=== PATIENT | male | born 1945 | race Caucasian/White ===

== ENCOUNTER 2023-04-20 12:05 | Outpatient (CLI) | payer MEDICARE, SELFPAY ==
--- NOTE | ~2023-04-20 | PE_ITS ---
EXAMINATION: PET_PETPSMAST_PT DATE: 04/20/2023 14:47 INDICATION: Prostate cancer TECHNIQUE: 9.208 mCi of pipflufolastat F-18 (18-F-DCFPyL) was administered i.v. Low dose computed to mography (CT) images were acquired from the base of the brain to the base of the brain to the proxima l thighs for attenuation correction and anatomic localization. Positron emission tomography (PET) moustapha ges were acquired in the same distribution beginning 79 minutes after injection. Images including fus ed PET/CT images were reconstructed in axial, coronal, and sagittal planes. Automated exposure contro l technique was employed. The dose-length product was 481.20mGy-cm. COMPARISON: None FINDINGS: Head/neck: Typical pattern of symmetric physiologic increased activity in the lacrimal, parotid and submandibula r glands as well as along the mucosa of the nasal and oral cavities, the kate-, naso- and hypopharynx, the glottis and esophagus. No pathologically enlarged cervical lymphadenopathy or suspicious foci of increased uptake in the visualized head or neck. Chest: No suspicious pulmonary nodules, pneumonia, pulmonary edema or other pulmonary infiltrates. No pleura l effusion. Heart size is normal. No pericardial effusion. No pathologically enlarged or PSMA avid th oracic lymphadenopathy. Abdomen/pelvis/proximal thighs: Physiologic renal accumulation and excretion of activity in the kidneys, bladder and along portions o f ureters. Bilateral renal cysts, the largest exophytic cyst on the left measuring 2 cm. Excreted uri nary activity in the bladder extends caudally into the site of the resected prostate. No surrounding nodular soft tissue densities or suspicious PSMA avid lesions in the region of the resected prostate to suggest residual or recurrent disease. Normal degree and slightly heterogenous pattern of increase d uptake throughout the liver and spleen without radiologic correlate or dominant PSMA avid lesion. T he gallbladder, pancreas and bilateral adrenal glands are normal. Moderate uptake scattered throughou t the bowels with typical duodenal and proximal jejunal predominance and without radiologic correlate , also likely physiologic. Mild uptake with maximal SUV of 2.3 associated with a normal sized 1.4 x 0 .7 cm right inguinal lymph node and with maximal SUV of 2.0 and a tiny focus of uptake without eviden t radiologic correlate the region of the left internal iliac chain near the tip of the ischial spine. No pathologically enlarged lymphadenopathy in the abdomen, pelvis or proximal thighs. Musculoskeletal: Small foci of mild activity at a few of the bilateral neural foramina in the lumbosacral and lower ce rvical spine likely physiologic activity at the neural ganglia. There is a more atypical tiny focus o f moderate uptake with maximal SUV of 8.3 at the right posterior aspect of the T12 vertebral body whi ch is without evident correlate on the CT images. Additional small focus of mild uptake with maximal SUV of 1.8 at the posterior right fourth rib also without radiologic correlate. IMPRESSION: 1. Very small focus of moderate uptake without radiologic correlate at the T12 vertebral body suspici ous for metastatic disease. 2. Additional small foci of mild activity associated with the posterior right fourth rib associated w ith a normal sized right inguinal and likely tiny left internal iliac chain lymph nodes also potentia lly related to very early metastatic disease but with lower suspicion. Reviewed, dictated and finalized at location B. IMPRESSION: 1. Very small focus of moderate uptake without radiologic correlate at the T12 vertebral body suspicious for metastatic disease. 2. Additional small foci of mild activity associated with the posterior right f ourth rib associated with a normal sized right in
== END 2023-04-20 12:06 | disposition home or self-care (01) ==
LOC: ANHIMG 12:11
PROVIDERS: PCP Family Medicine; Visit Provider Urology
DX: C61 Malignant neoplasm of prostate (principal)
CPT/HCPCS: 78815; A9595

== ENCOUNTER 2023-08-10 09:46 | Outpatient (CLI) | payer MEDICARE, SELFPAY ==
--- NOTE | ~2023-08-10 | DEXA_ITS ---
Bone Density Report Name: ASIM LEPE Age: 78 Sex: Male Ethnicity: White Date of : 1945 Indication: screening for osteoporosis; parental hip fracture; cancer; Referring Provider: ALICIA HE Study: Bone densitometry was performed. Exam Date: August 10, 2023 Accession number: [id number] Bone Density: Region BMD T-score Z-score Classification AP Spine(L1-L4) 0.832 -2.4 -1.3 Osteopenia Femoral Neck (Left) 0.654 -2.0 -0.6 Osteopenia Total Hip (Left) 0.798 -1.6 -0.7 Osteopenia Femoral Neck (Right) 0.589 -2.5 -1.1 Osteoporosis Total Hip (Right) 0.684 -2.3 -1.4 Osteopenia Total Hip Mean 0.741 -2.0 -1.1 Osteopenia World Health Organization criteria for BMD impression classify patients as: Normal (T-score at or above -1.0), Osteopenia (T-score between -1.0 and -2.5), or Osteoporosis (T-score at or below -2.5). 10-year Fracture Risk: FRAX not reported because: Some T-score for Spine Total or Hip Total or Femoral Neck at or below -2.5 Clinical Information Provided by Patient: Parent has had a hip fracture Smokes Has used the following medications: Vitamin D Has the following medical conditions: Cancer Patient maximum height was 70 Drinks caffeinated beverages Impression: The patient has osteoporosis, based on the Right Femoral Neck T-score. The patient has risk factors, including: parental hip fracture, smoking. Discussion: INCREASED RISK OF FRACTURE. BONE DENSITY IS UNDESIRABLY LOW AT ONE OR MORE SKELETAL SITES, CONSISTENT WITH OSTEOPOROSIS. This patient's lowest T-score meets the World Health Organization's (WHO) criteria for osteoporosis at one or more sites (T-score -2.5 or below). In untreated patients, the risk of osteoporotic fracture increases approximately two-fold for each 1.0 SD decrease in T-score. Low bone density is not the only risk factor for fracture; also consider factors such as patient's age, frailty or poor health, risk of falling, risk of injury, previous osteoporotic fracture, family history of osteoporosis, cigarette smoking, low body weight, etc. Not everyone with low bone mineral density has osteoporosis; osteomalacia and other metabolic bone disorders should also be considered. Patients who have osteoporosis should be evaluated for specific diseases and conditions (secondary causes) that may cause or contribute to bone loss. The National Osteoporosis Foundation (NOF) recommends pharmacologic intervention for men with BMD at this level (a T-score of -2.5 or below). The patient should follow a healthful lifestyle (good nutrition with adequate calcium and vitamin D, and appropriate weight-bearing exercise). Follow-Up: Consider repeating this study in 2 years to reassess this patient's status, or sooner if there is some new clinical indication. Reported
== END 2023-08-10 09:47 | disposition home or self-care (01) ==
LOC: ANHIMG 09:48
PROVIDERS: PCP Family Medicine; Visit Provider Urology
DX: C61 Malignant neoplasm of prostate (principal); M85.88 Other specified disorders of bone density and structure, other site; M85.852 Other specified disorders of bone density and structure, left thigh; M85.851 Other specified disorders of bone density and structure, right thigh; M81.0 Age-related osteoporosis without current pathological fracture
CPT/HCPCS: 77080